=== PATIENT | male | born 1980 | race Hispanic/Latino ===

== ENCOUNTER 2022-01-11 09:05 | Inpatient (IN) | payer SELFPAY ==
--- OUTSIDE RECORDS SUMMARY | 2022-01-11 09:09 | XMS REPORT | Continuity of Care Document ---
:1980 Author Organization [facility] t Address [address] [place] [address] Care Team Providers Name Role Phone NICOLE GLEASON Primary Care Physician KENZIE RICKS Attending Clinician Unavailable Payers Payer Name Policy Type Policy Number Effective Date Expiration Date S ource Problems This patient has no known problems. Allergies, Adverse Reactions, Alerts Allergy Allergy Status Severity Reaction(s) Onset Inactive Treating Comm ents Source Name Type Date Date Clinician No Known DA Active U [facility]11 [facility] 00:00: [address] No Known DA Active U [facility] 11-20 [facility] 00:00: [address] Medications This patient has no known medications. Procedures Procedure Date / Time Performed Performing Clinician Scott e CT of abdomen and 2017-08-19 00:00:00 KENZIE RICKS CHIk es [facility] contrast Encounters Start End Encounter Admission Attending Care Care Encounter Source Date/Time Date/Time Type Type Clinicians Facility Department ID 2017-08-19 2017-08-[address] [facility] [id number] KENYA Rivera 20:50:00 23:14:00 Emergency KENZIE [address] [place] [address] s Room Patient [facility] Results Test Description Test Time Test Comments Results Result [facility] e Comments - XR SPINE 1 V 2018-11-14 Patient Name: SPEC LEVEL 16:19:00 RUPA HENRY Unit No: [id number] EXAMS: CPT CODE: [id number] XR SPINE 1 V SPEC LEVEL [id number] Exam:Fluoroscopy for spine surgery Location: B2 Clinical Indication:38-year-ol d with radiculopathy Findings: Total fluoroscopy time was 1.9 seconds. Cumulative dose was 2.04 hours prior dose. A single lateral fluoroscopic view of the lower lumbar spine was submitted, showing surgical instruments projecting over the lumbosacral junction posterior elements. Please see operative report for further detail. at 1619 Reported and signed by: Suleman Easton M.D. CC: Dann Munguia MD Technologist: Miko Estrada, RT(R) Transcrpt Date/Tm/Trnsp: 11/14/2018 (161) t.SDR.[id number] Orig Print D/T: S: 11/14/2018 (4119) [facility] NAME: RUPA HENRY [id number] PHYS: [place] [address] : 1980 AGE: 38 SEX: M LOC: Z.531 A PHONE #: [phone] EXAM DATE: 11/14/2018 STATUS: ADM IN FAX #: [phone] RADIOLOGY NO: PAGE 1 Signed Report PLATELET FUNCTION 2018-11-11 11:27:00 Test Item Value Reference Range Interpretation Comme nts PFA COLLAGEN/EPI (test 169 SECONDS 83-183 N NOTE: When the COL/EPI study code = PFA) is abnormal, it is usually due to anaspiri n or an aspirin like de fect. Sometimes a her editarydefect, for example, st orage pool disease, can al so causethe abnormality. Ho wever, when the COL/ADP nelson dy is abnormal, a mor e seriousproblem usually exists, such as von Willebrands dis ease,etc. and further evaluat ion is usually indicated. PFA COLLAGEN/ADP (test TEST NOT PERFORMED 61-109 TEST NOT INDICATED code = COLADP) SECONDS CBC W/AUTO [id number] 11:25:00 Test Item Value Reference Range Interpretation Comments WHITE BLOOD CELL (test code = 9.1 K/MM3 3.8-9.8 N WBC) RED BLOOD CELL (test code = 5.63 M/MM3 3.95-5.67 N RBC) HEMOGLOBIN (test code = HGB) 16.1 G/DL 12.4-16.7 N HEMATOCRIT (test code = HCT) 47.7 % 35.9-49.5 N MEAN CELL VOLUME (test code = 85 fL 81.7-96.1 N MCV) MEAN CELL HGB (test code = MCH) 28.6 pg 27.6-33.2 N MEAN CELL HGB CONCETRATION 33.8 % 32.9-35.5 N (test code = MCHC) RED CELL DISTRIBUTION WIDTH 13.5 % 12.1-15.2 N (test code = RDW) PLATELET COUNT (test code = 210 K/MM3 129-368 N PLT) MEAN PLATELET VOLUME (test code 10.9 fl 7.4-10.4 H = MPV) NEUTROPHIL % (test code = NT%) 55.7 % 43-75 N IMMATURE GRANULOCYTE % (test 0.4 % 0.0-2.0 N code = IG%) LYMPHOCYTE % (test code = LY%) 29.8 % 14-44 N MONOCYTE % (test code = MO%) 8.1 % 4-13 N EOSINOPHIL % (test code = EO%) 5.7 % 0-6 N BASOPHIL % (test code = BA%) 0.3 % 0-2 N NUCLEATED RBC % (test code = 0.0 % 0-1.0 N NRBC%) NEUTROPHIL # (test code = NT#) 5.03 K/mm3 2.0-7.6 N IMMATURE GRANULOCYTE # (test 0.04 x10 3/uL 0-0.03 H code = IG#) LYMPHOCYTE # (test code = LY#) 2.70 K/mm3 1.0-3.8 N MONOCYTE # (test code = MO#) 0.73 K/mm3 0.1-0.8 N EOSINOPHIL # (test code = EO#) 0.52 K/mm3 0.0-0.2 H BASOPHIL # (test code = BA#) 0.03 K/mm3 0.0-0.2 N NUCLEATED RBC # (test code = 0.00 K/mm3 0.0-0.1 N NRBC#) COMPREHENSIVE METABOLIC [id number] 11:20:00 Test Item Value Reference Range Interpretation Comments SODIUM (test code = 144 MMOL/L 137-145 N NA) POTASSIUM (test code = 4.4 MMOL/L 3.5-5.1 N K) CHLORIDE (test code = 108 MMOL/L 98-107 H CL) CARBON DIOXIDE (test 26 MMOL/L 22-30 N code = CO2) GLUCOSE (test code = 118 MG/DL 74-106 H GLU) BLOOD UREA NITROGEN 13 MG/DL 9-20 N (test code = BUN) GLOMERULAR FILTRATION > 60 Report ing units: RATE (test code = GFR) ml/mi n/1.73 m2 (Modified MDRD Formula)Referen ce Range: > or = 6 0 ml/min/1.73 m2 CREATININE (test code 0.70 MG/DL 0.66-1.25 N = CREAT) TOTAL PROTEIN (test 7.6 G/DL 6.2-7.6 N code = PROT) ALBUMIN (test code = 4.0 G/DL 3.5-5.0 N ALB) CALCIUM (test code = 11.1 MG/DL 8.4-10.2 H CA) BILIRUBIN TOTAL (test 0.3 MG/DL 0.2-1.3 N code = BILT) SGOT/AST (test code = 33 UNITS/L 17-59 N AST) SGPT/ALT (test code = 67 UNITS/L 21-72 N ALT) ALKALINE PHOSPHATASE 120 UNITS/L 38-126 N (test code = ALKP) LIPID PROFILE (CORONARY RISK)2018-11-11 11:20:00 Test Item Value Reference Range Interpretation Comments TRIGLYCERIDES (test 180 MG/DL TRIGLYCE RIDES code = TRIG) REFERENCE RANGE:Normal: < 150 mg/dLBorderline High: 150-199 mg/dLHi gh: 200-499 mg/dLVe ry High: >=500 mg/ dL CHOLESTEROL (test code 209 MG/DL <200 = CHOL) HDL CHOLESTEROL (test 29 MG/DL 40-59 L code = HDL) LIPOPROTEIN LDL (test 155 MG/DL 0-99 H OPTIM AL.........<100 code = LDL) mg/dLNEAR OPTIMAL/ABOVE OPTIMAL........ .100-12 9 mg/dL BORDERL INE HIGH.........13 0-159 mg/dL HIGH.........16 0-189 mg/dL VERY HIGH.........>/ = 190 mg/dL PROTHROMBIN [id number] 11:18:00 Test Item Value Reference Range Interpretation Comments PROTHROMBIN TIME 10.4 SECONDS 9.6-11.6 N PATIENT (test code = PTP) INTERNATIONAL NORMAL 1.0 0.8-1.1 N The INR is to be RATIO (test code = used only for INR) monitoring oral anticoagulantth erap y. INDICATION I NR VALUE ---- ---- ---- -------1. Prophylaxis, de ep venous thrombos is, including high risk surgery. 2.0 - 3.0 2. Prophylaxis, deep venous thrombosis, hip surgery, treatm ent for deep venous thrombosis or pulmonary prevention of systemic emboli sm in patients wit h valvular heart disease, atrial fibrillation, tissue heart va lve, or acute myocar dial infarction. 2.0 - 3.0 3. B2B Outside Sales Representative al prosthesis hear t valves, recurre nt systemic emboli sm. 3.0 - 4.5 PTT [id number] 11:18:00 Test Item Value Reference Range Interpretation Comments PTT ACTIVATED (test code = APTT) 27.6 SECONDS 22.0-33.0 N COMPREHENSIVE METABOLIC [id number] 11:10:00 Test Item Value Reference Range Interpretation Comments SODIUM (test code = 144 MMOL/L 137-145 N NA) POTASSIUM (test code = 4.4 MMOL/L 3.5-5.1 N K) CHLORIDE (test code = 108 MMOL/L 98-107 H CL) CARBON DIOXIDE (test 26 MMOL/L 22-30 N code = CO2) GLUCOSE (test code = 118 MG/DL 74-106 H GLU) BLOOD UREA NITROGEN 13 MG/DL 9-20 N (test code = BUN) GLOMERULAR FILTRATION > 60 Report ing units: RATE (test code = GFR) ml/mi n/1.73 m2 (Modified MDRD Formula)Referen ce Range: > or = 6 0 ml/min/1.73 m2 CREATININE (test code 0.70 MG/DL 0.66-1.25 N = CREAT) TOTAL PROTEIN (test 7.6 G/DL 6.2-7.6 N code = PROT) ALBUMIN (test code = 4.0 G/DL 3.5-5.0 N ALB) CALCIUM (test code = 11.1 MG/DL 8.4-10.2 H CA) BILIRUBIN TOTAL (test 0.3 MG/DL 0.2-1.3 N code = BILT) SGOT/AST (test code = 33 UNITS/L 17-59 N AST) SGPT/ALT (test code = 67 UNITS/L 21-72 N ALT) ALKALINE PHOSPHATASE 120 UNITS/L 38-126 N (test code = ALKP) LIPID PROFILE (CORONARY RISK)2018-11-11 11:10:00 Test Item Value Reference Range Interpretation Comments TRIGLYCERIDES (test 180 MG/DL TRIGLYCE RIDES code = TRIG) REFERENCE RANGE:Normal: < 150 mg/dLBorderline High: 150-199 mg/dLHi gh: 200-499 mg/dLVe ry High: >=500 mg/ dL CHOLESTEROL (test code 209 MG/DL <200 = CHOL) HDL CHOLESTEROL (test 29 MG/DL 40-59 L code = HDL) LIPOPROTEIN LDL (test MG/DL 0-99 code = LDL) - XR L-SPINE 2/3 [id number] 09:38:00 Patient Name: RUPA HENRY JR Unit No: [id number] EXAMS: CPT CODE: [id number] XR L-SPINE 2/3 VIEWS [id number] Exam:Fluoroscopy for spine procedure Location: B2 Clinical Indication:38-year-old with disc displacement Comparison:None Findings:Total fluoroscopy time was 8.7 seconds. Cumulative dose was 5.05 mGy. 2 spot postoperative views of the lumbosacral junction were submitted, showing surgical instruments at that level. Please see operative report for further detail. at 0938 Reported and signed by: Suleman Easton M.D. CC: Dann Munguia MD Technologist: Miko Estrada RT(R) Transcrpt Date/Tm/Trnsp: 08/15/2018 (937) Hima.RB24 O rig Print D/T: S: 08/15/2018 (41) [facility] NAME: RUPA HENRY [id number] [address] PHYS: [place] [address] : 1980 AGE: 38 SEX: M LOC: JORGE A PHONE #:[phone] EXAM DATE: 08/15/2018 STATUS: REG SDC FAX #: [phone] RADIOLOGY NO: PAGE 1 Signed R eportPLATELET [id number] 14:35:00 Test Item Value Reference Range Interpretation Comments PFA > 300 SECONDS 83-183 H NOTE:When the COL/EPI COLLAGEN/EPI study is abnorm al, it is (test code = usually due to anaspirin PFA) or an aspirin l esperanza defect. Sometim es a hereditarydefec t, for example, storag e pool disease, can al so causethe abnorm ality. However, when t he COL/ADP study is abnorm al, a more seriousproblem usually exists, such as von Willebrands dis ease,etc. and further lobo luation is usually indicat ed. PFA 102 SECONDS 61-109 N COLLAGEN/ADP (test code = COLADP) COMPREHENSIVE METABOLIC [id number] 13:35:00 Test Item Value Reference Range Interpretation Comments SODIUM (test code = 142 MMOL/L 137-145 N NA) POTASSIUM (test code = 4.5 MMOL/L 3.5-5.1 N K) CHLORIDE (test code = 106 MMOL/L 98-107 N CL) CARBON DIOXIDE (test 28 MMOL/L 22-30 N code = CO2) GLUCOSE (test code = 92 MG/DL 74-106 N GLU) BLOOD UREA NITROGEN 17 MG/DL 9-20 N (test code = BUN) GLOMERULAR FILTRATION > 60 Report ing units: RATE (test code = GFR) ml/mi n/1.73 m2 (Modified MDRD Formula)Referen ce Range: > or = 6 0 ml/min/1.73 m2 CREATININE (test code 0.80 MG/DL 0.66-1.25 N = CREAT) TOTAL PROTEIN (test 8.0 G/DL 6.2-7.6 H code = PROT) ALBUMIN (test code = 4.6 G/DL 3.5-5.0 N ALB) CALCIUM (test code = 11.5 MG/DL 8.4-10.2 H CA) BILIRUBIN TOTAL (test 0.1 MG/DL 0.2-1.3 L code = BILT) SGOT/AST (test code = 33 UNITS/L 17-59 N AST) SGPT/ALT (test code = 68 UNITS/L 21-72 N ALT) ALKALINE PHOSPHATASE 114 UNITS/L 38-126 N (test code = ALKP) LIPID PROFILE (CORONARY RISK)2018-08-12 13:35:00 Test Item Value Reference Range Interpretation Comments TRIGLYCERIDES (test 176 MG/DL TRIGLYCE RIDES code = TRIG) REFERENCE RANGE:Normal: < 150 mg/dLBorderline High: 150-199 mg/dLHi gh: 200-499 mg/dLVe ry High: >=500 mg/ dL CHOLESTEROL (test code 193 MG/DL <200 = CHOL) HDL CHOLESTEROL (test 36 MG/DL 40-59 L code = HDL) LIPOPROTEIN LDL (test 154 MG/DL 0-99 H OPTIM AL.........<100 code = LDL) mg/dLNEAR OPTIMAL/ABOVE OPTIMAL........ .100-12 9 mg/dL BORDERL INE HIGH.........13 0-159 mg/dL HIGH.........16 0-189 mg/dL VERY HIGH.........>/ = 190 mg/dL COMPREHENSIVE METABOLIC [id number] 13:21:00 Test Item Value Reference Range Interpretation Comments SODIUM (test code = 142 MMOL/L 137-145 N NA) POTASSIUM (test code = 4.5 MMOL/L 3.5-5.1 N K) CHLORIDE (test code = 106 MMOL/L 98-107 N CL) CARBON DIOXIDE (test 28 MMOL/L 22-30 N code = CO2) GLUCOSE (test code = 92 MG/DL 74-106 N GLU) BLOOD UREA NITROGEN 17 MG/DL 9-20 N (test code = BUN) GLOMERULAR FILTRATION > 60 Report ing units: RATE (test code = GFR) ml/mi n/1.73 m2 (Modified MDRD Formula)Referen ce Range: > or = 6 0 ml/min/1.73 m2 CREATININE (test code 0.80 MG/DL 0.66-1.25 N = CREAT) TOTAL PROTEIN (test 8.0 G/DL 6.2-7.6 H code = PROT) ALBUMIN (test code = 4.6 G/DL 3.5-5.0 N ALB) CALCIUM (test code = 11.5 MG/DL 8.4-10.2 H CA) BILIRUBIN TOTAL (test 0.1 MG/DL 0.2-1.3 L code = BILT) SGOT/AST (test code = 33 UNITS/L 17-59 N AST) SGPT/ALT (test code = 68 UNITS/L 21-72 N ALT) ALKALINE PHOSPHATASE 114 UNITS/L 38-126 N (test code = ALKP) LIPID PROFILE (CORONARY RISK)2018-08-12 13:21:00 Test Item Value Reference Range Interpretation Comments TRIGLYCERIDES (test 176 MG/DL TRIGLYCE RIDES code = TRIG) REFERENCE RANGE:Normal: < 150 mg/dLBorderline High: 150-199 mg/dLHi gh: 200-499 mg/dLVe ry High: >=500 mg/ dL CHOLESTEROL (test code 193 MG/DL <200 = CHOL) HDL CHOLESTEROL (test 36 MG/DL 40-59 L code = HDL) LIPOPROTEIN LDL (test MG/DL 0-99 code = LDL) PROTHROMBIN [id number] 13:19:00 Test Item Value Reference Range Interpretation Comments PROTHROMBIN TIME 10.3 SECONDS 9.6-11.6 N PATIENT (test code = PTP) INTERNATIONAL NORMAL 1.0 0.8-1.1 N The INR is to be RATIO (test code = used only for INR) monitoring oral anticoagulantth erap y. INDICATION I NR VALUE ---- ---- ---- -------1. Prophylaxis, de ep venous thrombos is, including high risk surgery. 2.0 - 3.0 2. Prophylaxis, deep venous thrombosis, hip surgery, treatm ent for deep venous thrombosis or pulmonary prevention of systemic emboli sm in patients wit h valvular heart disease, atrial fibrillation, tissue heart va lve, or acute myocar dial infarction. 2.0 - 3.0 3. B2B Outside Sales Representative al prosthesis hear t valves, recurre nt systemic emboli sm. 3.0 - 4.5 PTT [id number] 13:19:00 Test Item Value Reference Range Interpretation Comments PTT ACTIVATED (test code = APTT) 26.8 SECONDS 22.0-33.0 N CBC W/AUTO [id number] 13:06:00 Test Item Value Reference Range Interpretation Comments WHITE BLOOD CELL (test code = 9.6 K/MM3 3.8-9.8 N WBC) RED BLOOD CELL (test code = 5.71 M/MM3 3.95-5.67 H RBC) HEMOGLOBIN (test code = HGB) 16.2 G/DL 12.4-16.7 N HEMATOCRIT (test code = HCT) 48.2 % 35.9-49.5 N MEAN CELL VOLUME (test code = 84 fL 81.7-96.1 N MCV) MEAN CELL HGB (test code = MCH) 28.4 pg 27.6-33.2 N MEAN CELL HGB CONCETRATION 33.6 % 32.9-35.5 N (test code = MCHC) RED CELL DISTRIBUTION WIDTH 13.2 % 12.1-15.2 N (test code = RDW) PLATELET COUNT (test code = 219 K/MM3 129-368 N PLT) MEAN PLATELET VOLUME (test code 11.0 fl 7.4-10.4 H = MPV) NEUTROPHIL % (test code = NT%) 53.3 % 43-75 N IMMATURE GRANULOCYTE % (test 0.4 % 0.0-2.0 N code = IG%) LYMPHOCYTE % (test code = LY%) 31.3 % 14-44 N MONOCYTE % (test code = MO%) 8.1 % 4-13 N EOSINOPHIL % (test code = EO%) 6.6 % 0-6 H BASOPHIL % (test code = BA%) 0.3 % 0-2 N NUCLEATED RBC % (test code = 0.0 % 0-1.0 N NRBC%) NEUTROPHIL # (test code = NT#) 5.13 K/mm3 2.0-7.6 N IMMATURE GRANULOCYTE # (test 0.04 x10 3/uL 0-0.03 H code = IG#) LYMPHOCYTE # (test code = LY#) 3.01 K/mm3 1.0-3.8 N MONOCYTE # (test code = MO#) 0.78 K/mm3 0.1-0.8 N EOSINOPHIL # (test code = EO#) 0.64 K/mm3 0.0-0.2 H BASOPHIL # (test code = BA#) 0.03 K/mm3 0.0-0.2 N NUCLEATED RBC # (test code = 0.00 K/mm3 0.0-0.1 N NRBC#) Urine [id number] 21:42:00 Test Item Value Reference Range Interpretation Comments Urine WBC (test code = 5821-4) 0-5 0-5 [facility] [id number] 21:42:00 Test Item Value Reference Range Interpretation Comments Urine RBC (test code = 56171-0) 50- 0-5 H [facility] Hospital[facility] [id number] 21:42:00 Test Item Value Reference Range Interpretation Comments Urine Bacteria (test code = 74494-9) MODERATE NONE H [facility] HospitalU[facility] Epithelial [id number] 21:42:00 Test Item Value Reference Range Interpretation Comments Urine Epithelial Cells (test code = NONE NONE 79788-7) [facility] HospitalCreatine Kinase [id number] 21:42:00 Test Item Value Reference Range Interpretation Comments Creatine Kinase MB (test code = 0.70 0-5.0 83164-6) [facility] HospitalTroponin [id number] 21:42:00 Test Item Value Reference Range Interpretation Comments Troponin I (test code = JXX1251) -0.001 0-0.300 [facility] [id number] 21:36:00 Test Item Value Reference Range Interpretation Comments Sodium Level (test code = 2951-2) 141 136-145 [facility] HospitalPotassium [id number] 21:36:00 Test Item Value Reference Range Interpretation Comments Potassium Level (test code = 2823-3) 4.2 3.5-5.1 [facility] HospitalChloride [id number] 21:36:00 Test Item Value Reference Range Interpretation Comments Chloride Level (test code = 2075-0) 105 98-107 [facility] HospitalCarbon Dioxide [id number] 21:36:00 Test Item Value Reference Range Interpretation Comments Carbon Dioxide Level (test code = 27 22-2027-) [facility] HospitalAnion [id number] 21:36:00 Test Item Value Reference Range Interpretation Comments Anion Gap (test code = 25415-7) 13.2 8-16 [facility] HospitalBlood Urea [id number] 21:36:00 Test Item Value Reference Range Interpretation Comments Blood Urea Nitrogen (test code = 01-03 3094-0) [facility] HospitalCreatinine2018-03-11 21:36:00 Test Item Value Reference Range Interpretation Comments Creatinine (test code = 2160-0) 1.19 0.72-1.25 [facility] HospitalBUN/Creatinine [id number] 21:36:00 Test Item Value Reference Range Interpretation Comments BUN/Creatinine Ratio (test code = 12-03 3097-3) [facility] HospitalEstimat Glomerular Filtration [id number] 21:36:00 Test Item Value Reference Range Interpretation Comments Estimat Glomerular Filtration Rate 60- >60 (test code = 91084-6) Ranges were taken from the National Kidney Disease Education Program and the National Kidney Foundation literature.Reference ranges:60 or greater: Rwzxry29- 59 (for 3 consecutive months): Chronic kidneydisease 15 or less: Kidney failure [facility] HospitalGlucose [id number] 21:36:00 Test Item Value Reference Range Interpretation Comments Glucose Level (test code = AOU5115) 103 74-118 [facility] HospitalCalcium [id number] 21:36:00 Test Item Value Reference Range Interpretation Comments Calcium Level (test code = 62036-1) 10.6 8.4-10.2 H [facility] HospitalTotal [id number] 21:36:00 Test Item Value Reference Range Interpretation Comments Total Bilirubin (test code = 1975-2) 0.4 0.2-1.2 [facility] HospitalAspartate Amino Transf (AST/SGOT)2017-08-19 21:36:00 Test Item Value Reference Range Interpretation Comments Aspartate Amino Transf (AST/SGOT) (test 34 5-34 code = Aspartate Amino Transf (AST/SGOT)) [facility] HospitalAlanine Aminotransferase (ALT/SGPT)2017-08-19 21:36:00 Test Item Value Reference Range Interpretation Comments Alanine Aminotransferase (ALT/SGPT) 66 0-55 H (test code = 1742-6) [facility] HospitalTotal [id number] 21:36:00 Test Item Value Reference Range Interpretation Comments Total Protein (test code = 2885-2) 7.7 6.5-8.1 [facility] HospitalAlbumin2018-03-11 21:36:00 Test Item Value Reference Range Interpretation Comments Albumin (test code = 1751-7) 4.1 3.5-5.0 [facility] HospitalGlobulin2018-03-11 21:36:00 Test Item Value Reference Range Interpretation Comments Globulin (test code = 74842-9) 3.6 2.3-3.5 H [facility] HospitalAlbumin/Globulin [id number] 21:36:00 Test Item Value Reference Range Interpretation Comments Albumin/Globulin Ratio (test code = 1.1 0.8-2.0 1759-0) [facility] HospitalAlkaline [id number] 21:36:00 Test Item Value Reference Range Interpretation Comments Alkaline Phosphatase (test code = 105 40-150 6768-6) [facility] HospitalCreatine [id number] 21:36:00 Test Item Value Reference Range Interpretation Comments Creatine Kinase (test code = 2157-6) 103 30-200 [facility] HospitalProthrombin [id number] 21:25:00 Test Item Value Reference Range Interpretation Comments Prothrombin Time (test code = 5902-2) 12.6 11.9-14.5 [facility] HospitalProthromb Time International [id number] 21:25:00 Test Item Value Reference Range Interpretation Comments Prothromb Time International Ratio 1.02 (test code = 6301-6) Oral Anticoagulant Therapy INR Values:1. Low Intensity Therapy 1.5 - 2.02. Moderate Intensity Therapy 2.0 - 3.03. High Intensity Therapy(1) 2.5 - 3.54. High Intensity Therapy(2) 3.0 - 4.05. Panic ValueINR > 5.0[facility] HospitalActivated Partial Thromboplast [id number] 21:25:00 Test Item Value Reference Range Interpretation Comments Activated Partial Thromboplast Time 24.4 23.8-35.5 (test code = 15824-5) [facility] HospitalMean Corpuscular Hemoglobin [id number] 21:22:00 Test Item Value Reference Range Interpretation Comments Mean Corpuscular Hemoglobin Concent 34.8 31-35 (test code = 786-4) [facility] HospitalRed Cell Distribution [id number] 21:22:00 Test Item Value Reference Range Interpretation Comments Red Cell Distribution Width (test code 12.9 11.7-14.4 = 78779-1) [facility] HospitalPlatelet [id number] 21:22:00 Test Item Value Reference Range Interpretation Comments Platelet Count (test code = 777-3) 208 140-360 [facility] HospitalNeutrophils (%) (Auto)2017-08-19 21:22:00 Test Item Value Reference Range Interpretation Comments Neutrophils (%) (Auto) (test code = 52.3 38.7-80.0 32830-5) [facility] HospitalLymphocytes (%) (Auto)2017-08-19 21:22:00 Test Item Value Reference Range Interpretation Comments Lymphocytes (%) (Auto) (test code = 32.4 18.0-39.1 736-9) [facility] HospitalMonocytes (%) (Auto)2017-08-19 21:22:00 Test Item Value Reference Range Interpretation Comments Monocytes (%) (Auto) (test code = 10.7 4.4-11.3 5905-5) [facility] HospitalEosinophils (%) (Auto)2017-08-19 21:22:00 Test Item Value Reference Range Interpretation Comments Eosinophils (%) (Auto) (test code = 4.0 0.0-6.0 713-8) [facility] HospitalBasophils (%) (Auto)2017-08-19 21:22:00 Test Item Value Reference Range Interpretation Comments Basophils (%) (Auto) (test code = 0.3 0.0-1.0 706-2) [facility] HospitalIM GRANULOCYTES %2017-08-19 21:22:00 Test Item Value Reference Range Interpretation Comments IM GRANULOCYTES % (test code = IM 0.3 0.0-1.0 GRANULOCYTES %) [facility] HospitalNeutrophils # (Auto)2017-08-19 21:22:00 Test Item Value Reference Range Interpretation Comments Neutrophils # (Auto) (test code = 5.2 2.1-6.9 751-8) [facility] HospitalLymphocytes # (Auto)2017-08-19 21:22:00 Test Item Value Reference Range Interpretation Comments Lymphocytes # (Auto) (test code = 3.2 1.0-3.2 46371-2) [facility] HospitalMonocytes # (Auto)2017-08-19 21:22:00 Test Item Value Reference Range Interpretation Comments Monocytes # (Auto) (test code = 742-7) 1.1 0.2-0.8 H [facility] HospitalEosinophils # (Auto)2017-08-19 21:22:00 Test Item Value Reference Range Interpretation Comments Eosinophils # (Auto) (test code = 0.4 0.0-0.4 711-2) [facility] HospitalBasophils # (Auto)2017-08-19 21:22:00 Test Item Value Reference Range Interpretation Comments Basophils # (Auto) (test code = 704-7) 0.0 0.0-0.1 [facility] HospitalAbsolute Immature Granulocyte ([id number] 21:22:00 Test Item Value Reference Range Interpretation Comments Absolute Immature Granulocyte (auto 0.03 0-0.1 (test code = Absolute Immature Granulocyte (auto) [facility] HospitalWhite Blood [id number] 21:22:00 Test Item Value Reference Range Interpretation Comments White Blood Count (test code = 6690-2) 9.88 4.8-10.8 [facility] HospitalRed Blood [id number] 21:22:00 Test Item Value Reference Range Interpretation Comments Red Blood Count (test code = 789-8) 5.86 4.3-5.7 [facility] 21:22:00 Test Item Value Reference Range Interpretation Comments Hemoglobin (test code = 29903-1) 16.9 14.0-18.0 [facility]ematocrit2018-03-11 21:22:00 Test Item Value Reference Range Interpretation Comments Hematocrit (test code = 4544-3) 48.6 38.2-49.6 [facility] Corpuscular [id number] 21:22:00 Test Item Value Reference Range Interpretation Comments Mean Corpuscular Volume (test code = 82.9 81-99 787-2) [facility] Corpuscular [id number] 21:22:00 Test Item Value Reference Range Interpretation Comments Mean Corpuscular Hemoglobin (test code 28.8 28-32 = 785-6) [facility] Hospital[facility]rine [id number] 21:21:00 Test Item Value Reference Range Interpretation Comments Urine Color (test code = 5778-6) RED YELLOW H [facility] Hospital[facility] [id number] 21:21:00 Test Item Value Reference Range Interpretation Comments Urine Clarity (test code = 57110-9) CLOUDY CLEAR [facility] HospitalU[facility] Specific [id number] 21:21:00 Test Item Value Reference Range Interpretation Comments Urine Specific [place] (test code = 1.015 1.010-1.025 5811-5) [facility] Hospital[facility] [id number] 21:21:00 Test Item Value Reference Range Interpretation Comments Urine pH (test code = 37213-9) 7 5-7 [facility] Leukocyte [id number] 21:21:00 Test Item Value Reference Range Interpretation Comments Urine Leukocyte Esterase (test code NEGATIVE NEGATIVE = 5799-2) [facility] [id number] 21:21:00 Test Item Value Reference Range Interpretation Comments Urine Nitrite (test code = 22792-6) NEGATIVE NEGATIVE [facility] [id number] 21:21:00 Test Item Value Reference Range Interpretation Comments Urine Protein (test code = 5804-0) 1+ NEGATIVE H [facility] Hospital[facility] Glucose (UA)2017-08-19 21:21:00 Test Item Value Reference Range Interpretation Comments Urine Glucose (UA) (test code = NEGATIVE NEGATIVE 2349-9) [facility] [id number] 21:21:00 Test Item Value Reference Range Interpretation Comments Urine Ketones (test code = 44895-4) NEGATIVE NEGATIVE [facility] [id number] 21:21:00 Test Item Value Reference Range Interpretation Comments Urine Urobilinogen (test code = 0.2 0.2-1 54873-6) [facility] [id number] 21:21:00 Test Item Value Reference Range Interpretation Comments Urine Bilirubin (test code = 1978-6) NEGATIVE NEGATIVE [facility] [id number] 21:21:00 Test Item Value Reference Range Interpretation Comments Urine Blood (test code = 08357-5) 4+ NEGATIVE [facility] HospitalCT [facility]PELVIS WO [place] [address] Patient Name: RUPA HENRY JR MR #: [id number] : 1980 Age/Sex: 37/M Req #: [id number] Adm Physician: Ordered by: KENZIE RICKS MD Report #: [id number] Location: ER Room/Bed: Procedure: [id number] CT/CT ABDOMEN/PELVIS WO Exam Date: 08/19/17 Exam Time: 2133 REPORT STATUS: Signed EXAM:CT Abdomen and Pelvis WITHOUT contrast INDICATION: Hematuria, stone protocol COMPARISON: None. TECHNIQUE: Abdomen and pelvis were scanned utilizing a multidetector helical scanner from the lung base tothe pubic symphysis without administration of IV contrast. Absence of intravenous contrast decreasessensitivity for detection of focal lesions and vascular pathology. Coronal and sagittal reformationswere obtained. Stone protocol is performed. IV CONTRAST: None. ORAL CONTRAST: Water RADIATION DOSE: Total DLP: 844.45 mGy*cm Estimated effective dose: (DLP x 0.015 x size factor) mSv COMPLICATIONS: None FINDINGS: LINES and TUBES: None. LOWER THORAX: Unremarkable HEPATOBILIARY: No focal hepatic lesions. No biliary ductal dilation. GALLBLADDER: No radio-opaque stones or sludge. No wall thickening. SPLEEN: No splenomegaly. PANCREAS: No focal masses or ductal dilatation. ADRENALS: No adrenal nodules KIDNEYS/URETERS: No hydronephrosis. No cystic or solid mass lesions. Bilateral punctate nonobstructing stones. * The largest right kidney stone measuring 4.6 mm in diameter in the inferior pole. * The largest in the left kidney measuring 6.1 mm stone in the inferior pole. GI TRACT: No abnormal distention,wall thickening, or evidence of bowel obstruction. There are diverticula within the colon without evidence of diverticulitis. Appendix is normal. PELVIC ORGANS/BLADDER: Unremarkable. LYMPH NODES: No lym phadenopathy. VESSELS: Unremarkable. PERITONEUM / RETROPERITONEUM: No free air or fluid. BONES: Unremarkable. SOFT TISSUES: Unremarkable. IMPRESSION: 1. Bilateral nonobstructing nephrolithiasis without evidence of hydronephrosis. Signed by: Dr. Khai Coburn M.D. on 08/19/2017 10:09 PM Dictated By: KHAI BOWMAN MD 08 Transcribed By: OKSANA on 08/19/172208 COPY TO: KENZIE RICKS MD
--- NOTE | 2022-01-11 09:40 | RAD REPORT ---
EXAM DESCRIPTION: CT - Ct Stroke Brain Wo Cont - 01/11/2022 9:32 am CLINICAL HISTORY: Left arm numbness COMPARISON: none TECHNIQUE: Computed axial tomography of the head was obtained. All CT scans are performed using dose optimization technique as appropriate and may include automated exposure control or mA/KV adjustment according to patient size. FINDINGS: An intracranial bleed is not seen . The ventricles are normal in caliber. No extra-axial fluid collection is noted. No significant hypodensity within the brain is seen Fluid within the sinuses/ mastoids is not seen. IMPRESSION: No acute intracranial abnormality is seen. If patient's symptoms persist MRI of the bra in would be recommended. Sam of the emergency room was notified at 6 9:36 a.m. January 11, 2022
--- NOTE | 2022-01-11 09:41 | RAD REPORT ---
EXAM DESCRIPTION: [place] Single View01/11/2022 9:30 am CLINICAL HISTORY: Chest pain COMPARISON: none FINDINGS: The lungs appear clear of acute infiltrate. The heart is normal size IMPRESSION: No acute abnormalities displayed
[2022-01-11] MEDS ORDERED: ONDANSETRON 4 MG/2 ML VIAL ONE (09:45)
[2022-01-11] MEDS ORDERED: MORPHINE 4 MG/ML SYR ONE (09:45)
[2022-01-11 09:58] LABS: Absolute Lymphocytes (CBC) 1.8 K/uL (0.7-4.9); Hematocrit 53.3 % (39.6-49.0); Lymphocytes % 23.7 % (15.3-44.8); MCV 85.9 fL (80-100); MPV 8.4 fL (7.6-11.3); RBC Red Blood Cell Count 6.21 M/uL (4.33-5.43)
[2022-01-11 10:04] LABS: Protime INR 0.96
[2022-01-11 10:11] LABS: Potassium 4.3 mmol/L (3.5-5.1)
[2022-01-11] MEDS ORDERED: LIDOCAINE VISCOUS 2% SOLN 15 ML UDC ONE (10:44)
[2022-01-11] MEDS ORDERED: MAGNES/ALUMIN/SIMET 30ML UCUP ONE (10:44)
[2022-01-11] MEDS ORDERED: FAMOTIDINE 20 MG/2 ML VIAL IV ONE (10:44)
[2022-01-11] MEDS ORDERED: LORazepam 2 MG/ML VIAL ONE (11:09)
--- NOTE | 2022-01-11 11:39 | RAD REPORT ---
EXAM DESCRIPTION: LIDIASuedarien Angio01/11/2022 11:16 am CLINICAL HISTORY: Left facial numbness COMPARISON: None TECHNIQUE: 50 cc Isovue 370 was administered intravenously. 3D MIP reconstruction performed All CT scans are performed using dose optimization technique as appropriate and may include automated exposure control or mA/KV adjustment according to patient size. FINDINGS: Common carotid, internal carotid and external carotid arteries bilaterally do not demonstr ate a significant stenosis. There is minimal plaque present. Vertebral arteries are codominant. No dissection seen. IMPRESSION: No significant abnormality is displayed NASCET criteria used. Mild 0-49% stenosis Moderate 50-69% stenosis Severe 70-99% stenosis
--- NOTE | 2022-01-11 11:51 | RAD REPORT ---
EXAM DESCRIPTION: CTHead angio01/11/2022 11:15 am CLINICAL HISTORY: Left numbness COMPARISON: None TECHNIQUE: CT angiogram of the head was obtained. 3D MIPS reconstruction performed. All CT scans are performed using dose optimization technique as appropriate and may include automated exposure control or mA/KV adjustment according to patient size. FINDINGS: The basilar, internal carotid, anterior cerebral, middle cerebral and posterior cerebral a rteries are normal caliber. An aneurysm is not seen. A significant stenosis is not noted. IMPRESSION: Unremarkable CT angiogram head.
--- NOTE | 2022-01-11 13:09 | EDPHYS ---
Physician Documentation [facility] Name: Ronnie Bartlett Jr Age: 41 yrs Sex: Male : 1980 Arrival Date: 01/11/2022 Time: 09:06 Bed 2 Private MD: TAYE Physician Tin Sommers HPI: 01/11 09:08 This 41 yrs old Male presents to ER via EMS with complaints of Chest Pain. jmm 09:08 The patient or guardian reports chest pain that is located primarily in the substernal [facility] area. The pain radiates to the left arm. Associated signs and symptoms: Pertinent positives: paresthesias. 41-year-old male with no chronic medical conditions presents emerged department with complaints of substernal chest pain beginning this morning at around 8 AM. Patient states the pain soon began to radiate to the left arm but does describe the discomfort as numbness to both the left arm and left side of his face. Patient states having small amount of tingling to the left leg but he attributes this to lower back injury. Patient denies shortness of breath. Denies weakness to the left upper extremity, denies difficulty with his speech.. Historical: - Allergies: 09:11 No Known Allergies; jd3 - Home Meds: 09:11 None [Active]; jd3 - PMHx: 09:11 None; jd3 - PSHx: 09:11 None; jd3 - Immunization history:: Adult Immunizations up to date, Client reports receiving the 2nd dose of the Covid vaccine. - Social history:: Smoking status: Patient denies any tobacco usage or history of. ROS: 09:08 Constitutional: Negative for fever, chills, and weight loss, Respiratory: Negative for jmm shortness of breath, cough, wheezing, and pleuritic chest pain. 09:08 Cardiovascular: Positive for chest pain. 09:08 Neuro: Positive for numbness. 09:08 All other systems are negative. Exam: 09:08 Head/Face: atraumatic. Eyes: EOMI, no conjunctival erythema appreciated ENT: Moist jmm Mucus Membranes Neck: Trachea midline, Supple Chest/axilla: Normal chest wall appearance and motion. 09:08 Constitutional: The patient appears alert, awake, anxious. 09:08 Cardiovascular: Rate: normal, Rhythm: regular. 09:08 Respiratory: the patient does not display signs of respiratory distress, Respirations: normal, Breath sounds: are clear throughout. 09:08 Abdomen/GI: Inspection: abdomen appears normal, Bowel sounds: normal, Palpation: soft, mild abdominal tenderness, in the epigastric area and right upper quadrant. 09:08 Back: CVA tenderness, is absent, is noted bilaterally. 09:08 Musculoskeletal/extremity: ROM: intact in all extremities, No edema appreciated to the left or right lower leg, compartments are soft, full dorsalis pedis pulse bilaterally, neurovascular intact. Vital Signs: 09:11 BP 165 / 101; Pulse 96; Resp 14 S; Temp 98(TE); Pulse Ox 100% on R/A; Weight 108.86 kg jd3 (R); Height 5 ft. 8 in. (172.72 cm) (R); Pain 7/10; 10:08 BP 125 / 90; Pulse 87; Resp 16 S; Pulse Ox 97% on R/A; Pain 3/10; jd3 10:41 Pain 6/10; jd3 11:06 BP 132 / 71; Pulse 81; Resp 15; Pulse Ox 95% on R/A; jd3 12:31 BP 121 / 63; Pulse 86; Resp 16; Pulse Ox 95% on R/A; jd3 13:35 BP 126 / 85; Pulse 85; Resp 17; Pulse Ox 98% on R/A; jd3 16:08 Pulse 86; Resp 16; Pulse Ox 99% on R/A; jd3 19:00 BP 145 / 101; Pulse 79; Resp 16; Pulse Ox 93% ; vc1 20:00 BP 142 / 89; Pulse 79; Resp 17; Pulse Ox 95% on R/A; vc1 09:11 Body Mass Index 36.49 (108.86 kg, 172.72 cm) jd3 NIH Stroke Scale Scores: 09:08 NIHSS Score: [address] [facility] 09:15 NIHSS Score: 0 j MDM: 09:08 Patient medically screened. gregorio 13:06 Data reviewed: vital signs, nurses notes. Counseling: I had a detailed discussion with jaime the patient and/or guardian regarding: the historical points, exam findings, and any diagnostic results supporting the discharge/admit diagnosis, lab results, radiology results, the need for further work-up and treatment in the hospital. ED course: I discussed the patient with whom does not recommend administration of TN K due to NIH of 0. Does recommend CTA angio of the head and the neck as well as administration of Plavix folic acid, aspirin. I discussed the patient with Dr. Beach whom accepted the patient to his service.. 01/11 09:16 Order name: Basic Metabolic Panel; Complete Time: 10:[address] [facility] 01/11 09:16 Order name: CBC with Diff; Complete Time: 10:[address] [facility] 01/11 09:16 Order name: Protime (+inr); Complete Time: 10:[address] [facility] 01/11 09:16 Order name: Ptt, Activated; Complete Time: 10:[address] [facility] 01/11 09:37 Order name: Glucose, Ancillary Testing; Complete Time: 09:41 [facility] 01/11 10:50 Order name: Troponin High Sensitivity; Complete Time: 11:[address] [facility] 01/11 09:16 Order name: CT Stroke Brain w/o Contrast; Complete Time: 09:[address] [facility] 01/11 09:16 Order name: Stroke CXR 1 View; Complete Time: 09:[address] [facility] 01/11 11:04 Order name: Head Angio CT; Complete Time: 12:[address] [facility] 01/11 11:04 Order name: Neck Angio CT; Complete Time: 11:[address] [facility] 01/11 11:13 Order name: SARS RAPID; Complete Time: 13:[address] [facility] 01/11 11:41 Order name: Troponin High Sensitivity: repeat after 3 hours; Complete Time: 13:[address] [facility] 01/11 15:19 Order name: Stroke Protocol [facility] 01/11 18:27 Order name: MRI; Complete Time: 19:35 [facility] 01/11 09:16 Order name: EKG; Complete Time: 09:[address] [facility] 01/11 09:16 Order name: Accucheck; Complete Time: 09:[address] [facility] 01/11 09:16 Order name: Cardiac monitoring; Complete Time: 09:[address] [facility] 01/11 09:16 Order name: EKG - Nurse/Tech; Complete Time: 09:[address] [facility] 01/11 09:16 Order name: IV Saline Lock; Complete Time: 09:[address] [facility] 01/11 09:16 Order name: Labs collected and sent; Complete Time: 09:[address] [facility] 01/11 15:19 Order name: CONS Physician Consult [facility] 01/11 18:28 Order name: MRI; Complete Time: 19:35 [facility] 01/11 18:31 Order name: MRI; Complete Time: 19:35 [facility] 01/11 09:16 Order name: NPO; Complete Time: 09:[address] [facility] 01/11 09:16 Order name: O2 Per Protocol; Complete Time: 09:[address] [facility] 01/11 09:16 Order name: O2 Sat Monitoring; Complete Time: 09:[address] [facility] 01/11 09:16 Order name: Stroke Swallow Screen; Complete Time: 09:[address] [facility] 01/11 09:35 Order name: Labs - recollect needed; Complete Time: 09:47 aa5 Administered Medications: 09:45 Drug: morphine 4 mg {Note: pain of 12/18.} Route: IVP; Infused Over: 4 mins; Site: left jd3 antecubital; 10:41 Follow up: Pain 610 Adult; Response: No adverse reaction; RASS: Alert and Calm (0) jd3 09:45 Drug: Zofran (Ondansetron) 4 mg Route: IVP; Site: left antecubital; jd3 10:41 Follow up: Response: No adverse reaction jd3 10:24 CANCELLED (given by EMSS): Aspirin Chewable Tablet 324 mg PO once; 81 mg tablets x 4 jd3 10:41 Drug: Pepcid (famotidine) 20 mg Route: IVP; Site: left antecubital; jd3 11:05 Follow up: Response: No adverse reaction jd3 10:41 Drug: GI Cocktail without - (Maalox Suspension 30 ml, Lidocaine Liquid 2 % 15 jd3 ml) Route: PO; 11:05 Follow up: Response: No adverse reaction jd3 11:05 Drug: Ativan (LORazepam) 1 mg Route: IVP; Site: left antecubital; jd3 12:00 Follow up: Response: No adverse reaction jd3 13:14 Drug: foLIC Acid 1 mg Route: IVPB; Site: left antecubital; jd3 14:00 Follow up: Response: No adverse reaction; IV Status: Completed infusion jd3 Disposition Summary: 01/11/22 13:08 Hospitalization Ordered Hospitalization Status: Observation jmm Provider: [place] Location: Telemetry/MedSurg (observation) jmm Condition: Stable jmm Problem: new jmm Symptoms: are unchanged [facility] Bed/Room Type: Standard [facility] Room Assignment: 223(01/11/22 19:57) Diagnosis - Chest pain, unspecified jmm - Left Sided Paresthesias [facility] Forms: - Medication Reconciliation Form [facility] - SBAR form [facility] NIH Stroke Scale - NIH Stroke Score Date: 01/11/2022 Time: 09:08 Total Score = 0 1a. Level of Consciousness (LOC) - 0(Alert) 1b. Level of Consciousness (LOC) (Month \T\ Age) - 0(Both) 1c. LOC Commands (Open \T\ Closes Eyes/Field Return Repairer) - 0(Both) 2. Best Gaze (Lateral Gaze Paresis) - 0(Normal) 3. Visual Field Loss - 0(No visual loss) 4. Facial Palsy - 0(Normal) 5a. Left Arm: Motor (10-second hold) - 0(No drift) 5b. Right Arm: Motor (10-second hold) - 0(No drift) 6a. Left Leg: Motor (5-second hold - always test supine) - 0(No drift) 6b. Right Leg: Motor (5-second hold - always test supine) - 0(No drift) 7. Limb Ataxia (finger/nose \T\ heel/jaffe - test with eyes open) - 0(Absent) 8. Sensory Loss (pinprick arms/legs/face) - 0(Normal) 9. Best Language: Aphasia (description/naming/reading) - 0(No aphasia) 10. Dysarthria (speech clarity - read or repeat words) - 0(Normal) 11. Extinction and Inattention (visual/tactile/auditory/spatial/personal) - 0(No abnormality) Initials: [facility] NIH Stroke Scale - NIH Stroke Score Date: 01/11/2022 Time: 09:15 Total Score = 0 1a. Level of Consciousness (LOC) - 0(Alert) 1b. Level of Consciousness (LOC) (Month \T\ Age) - 0(Both) 1c. LOC Commands (Open \T\ Closes Eyes/Field Return Repairer) - 0(Both) 2. Best Gaze (Lateral Gaze Paresis) - 0(Normal) 3. Visual Field Loss - 0(No visual loss) 4. Facial Palsy - 0(Normal) 5a. Left Arm: Motor (10-second hold) - 0(No drift) 5b. Right Arm: Motor (10-second hold) - 0(No drift) 6a. Left Leg: Motor (5-second hold - always test supine) - 0(No drift) 6b. Right Leg: Motor (5-second hold - always test supine) - 0(No drift) 7. Limb Ataxia (finger/nose \T\ heel/jaffe - test with eyes open) - 0(Absent) 8. Sensory Loss (pinprick arms/legs/face) - 0(Normal) 9. Best Language: Aphasia (description/naming/reading) - 0(No aphasia) 10. Dysarthria (speech clarity - read or repeat words) - 0(Normal) 11. Extinction and Inattention (visual/tactile/auditory/spatial/personal) - 0(No abnormality) Initials: mulu Signatures: Dispatcher [employer] Tin Redding MD MD cha Mickail, Joel, PA PA jmm Calderon, Audri, RN RN aa5 Kajal Lr RN RN Timothy Ramon RN RN jd3 Corrections: (The following items were deleted from the chart) 09:11 09:11 PMHx: Unable to Obtain; mulu jd3 10:24 10:20 Aspirin Chewable Tablet 324 mg PO once; 81 mg tablets x 4 ordered. jaime hardwick 13: 09:17 NIHSS Score: 3 jaime sandoval 13: 09:25 NIHSS Score: 1 jaime sandoval 19:57 13:08 jaime palacios
--- NOTE | 2022-01-11 13:09 | ER ---
Nurse's Notes [facility] Name: Ronnie Bartlett Jr Age: 41 yrs Sex: Male : 1980 Arrival Date: 01/11/2022 Time: 09:06 Bed 2 Private MD: Diagnosis: Chest pain, unspecified;Left Sided Paresthesias Presentation: 01/11 09:10 Chief complaint: EMS states: "pt reported that he is having chest pain today that jd3 started around 0800 this morning. reporting it feels like he has a belt tightened around his chest. he reports his pain radiates to his left shoulder and left armpit. this radiation the pt reports as a tingling feeling.". Coronavirus screen: At this time, the client does not indicate any symptoms associated with coronavirus-19. Ebola Screen: No symptoms or risks identified at this time. Initial Sepsis Screen: Does the patient meet any 2 criteria? No. Patient's initial sepsis screen is negative. Does the patient have a suspected source of infection? No. Patient's initial sepsis screen is negative. Risk Assessment: Do you want to hurt yourself or someone else? Patient reports no desire to harm self or others. Onset of symptoms was January 11, 2022. 09:10 Method Of Arrival: EMS: [facility] jd3 09:10 Acuity: SIRENA 3 jd3 09:10 Care prior to arrival: Medication(s) given: ASA, 81 mg, x 4. jd3 Historical: - Allergies: 09:11 No Known Allergies; jd3 - Home Meds: 09:11 None [Active]; jd3 - PMHx: 09:11 None; jd3 - PSHx: 09:11 None; jd3 - Immunization history:: Adult Immunizations up to date, Client reports receiving the 2nd dose of the Covid vaccine. - Social history:: Smoking status: Patient denies any tobacco usage or history of. Screenin:14 Abuse screen: Denies threats or abuse. Nutritional screening: No deficits noted. jd3 Tuberculosis screening: No symptoms or risk factors identified. Fall Risk Ambulatory Aid- None/Bed Rest/Nurse Assist (0 pts). Gait- Normal/Bed Rest/Wheelchair (0 pts) Mental Status- Oriented to own ability (0 pts). Total José Fall Scale indicates No Risk (0-24 pts). 09:15 VAN Screening: Arm Drift: Patient shows no arm weakness. Patient is VAN negative. jd3 Patient has been NPO before screening. The patient is alert, able to follow commands. The patient does not exhibit slurred or garbled speech The patient is not exhibiting difficulty speaking. The patient does not exhibit difficulty understanding words. The patient is able to swallow own secretions with no drooling or need for suction. Patient tolerated one teaspoon of water. No drooling, immediate coughing, gurgling, or clearing of the throat was noted. The patient tolerated 90mL of water. No drooling, immediate coughing, gurgling, or clearing of the throat was noted. The patient passed the bedside swallow screening. Oral medications may be given as ordered. Contact Physician for further diet orders. Provider notified of bedside swallow screening results: Sam JAY. Assessment: 09:12 General: Appears in no apparent distress. comfortable, Behavior is calm, cooperative, jd3 appropriate for age. Pain: Complains of pain in chest Pain radiates to left shoulder Quality of pain is described as pressure, radiating, sharp, Pain began 4 hours ago. Neuro: Pandey Agitation-Sedation Scale (RASS): 0 - Alert and Calm Level of Consciousness is awake, alert, obeys commands, Oriented to person, place, time, situation, Print Line Inspector are equal bilaterally Moves all extremities. Full function Speech is normal, Facial symmetry appears normal, Pupils are PERRLA, Intact. Cardiovascular: Reports chest pain, Capillary refill < 3 seconds Patient's skin is warm and dry. Rhythm is sinus rhythm with unifocal PVCs. Respiratory: Reports shortness of breath related to pain Airway is patent Respiratory effort is even, unlabored, Respiratory pattern is regular, symmetrical, Denies cough. GI: No signs and/or symptoms were reported involving the gastrointestinal system. : No signs and/or symptoms were reported regarding the genitourinary system. EENT: No signs and/or symptoms were reported regarding the EENT system. Derm: Skin is intact, Skin is dry, Skin is normal, Skin temperature is warm. Musculoskeletal: Circulation, motion, and sensation intact. Range of motion: intact in all extremities. 10:08 Reassessment: Patient appears in no apparent distress at this time. Patient and/or jd3 family updated on plan of care and expected duration. Pain level reassessed. Patient is alert, oriented x 3, equal unlabored respirations, skin warm/dry/pink. Patient states feeling better. 11:06 Reassessment: Patient appears in no apparent distress at this time. No changes from jd3 previously documented assessment. Patient and/or family updated on plan of care and expected duration. Pain level reassessed. Patient is alert, oriented x 3, equal unlabored respirations, skin warm/dry/pink. 12:31 Reassessment: Patient appears in no apparent distress at this time. Patient and/or jd3 family updated on plan of care and expected duration. Pain level reassessed. Patient is alert, oriented x 3, equal unlabored respirations, skin warm/dry/pink. 13:35 Reassessment: Patient appears in no apparent distress at this time. Patient and/or jd3 family updated on plan of care and expected duration. Pain level reassessed. Patient is alert, oriented x 3, equal unlabored respirations, skin warm/dry/pink. Patient states feeling better. 16:08 Reassessment: Patient appears in no apparent distress at this time. No changes from jd3 previously documented assessment. Patient and/or family updated on plan of care and expected duration. Pain level reassessed. Patient is alert, oriented x 3, equal unlabored respirations, skin warm/dry/pink. 17:10 Reassessment: Patient appears in no apparent distress at this time. Patient and/or jd3 family updated on plan of care and expected duration. Pain level reassessed. Patient is alert, oriented x 3, equal unlabored respirations, skin warm/dry/pink. 18:15 Reassessment: Patient appears in no apparent distress at this time. Patient and/or jd3 family updated on plan of care and expected duration. Pain level reassessed. Patient is alert, oriented x 3, equal unlabored respirations, skin warm/dry/pink. awaiting admission. 19:15 Reassessment: No changes from previously documented assessment. Patient and/or family vc1 updated on plan of care and expected duration. Pain level reassessed. Patient states feeling better. 20:15 Reassessment: No changes from previously documented assessment. Patient and/or family vc1 updated on plan of care and expected duration. Pain level reassessed. Vital Signs: 09:11 BP 165 / 101; Pulse 96; Resp 14 S; Temp 98(TE); Pulse Ox 100% on R/A; Weight 108.86 kg jd3 (R); Height 5 ft. 8 in. (172.72 cm) (R); Pain 7/10; 10:08 BP 125 / 90; Pulse 87; Resp 16 S; Pulse Ox 97% on R/A; Pain 3/10; jd3 10:41 Pain 6/10; jd3 11:06 BP 132 / 71; Pulse 81; Resp 15; Pulse Ox 95% on R/A; jd3 12:31 BP 121 / 63; Pulse 86; Resp 16; Pulse Ox 95% on R/A; jd3 13:35 BP 126 / 85; Pulse 85; Resp 17; Pulse Ox 98% on R/A; jd3 16:08 Pulse 86; Resp 16; Pulse Ox 99% on R/A; jd3 19:00 BP 145 / 101; Pulse 79; Resp 16; Pulse Ox 93% ; vc1 20:00 BP 142 / 89; Pulse 79; Resp 17; Pulse Ox 95% on R/A; vc1 09:11 Body Mass Index 36.49 (108.86 kg, 172.72 cm) j NIH Stroke Scale Scores: 09:08 NIHSS Score: 0 jm 09:15 NIHSS Score: 0 [facility] ED Course: 09:06 Patient arrived in ED. bd 09:07 Sam Esquivel PA is PHCP. jmm 09:07 Tin Sommers MD is Attending Physician. [facility] 09:09 Timothy Gallegos, RN is Primary Nurse. jd3 09:11 Triage completed. jd3 09:12 Arm band placed on. EKG completed in triage. Results shown to MD. jd3 09:15 Patient has correct armband on for positive identification. Bed in low position. Call [facility] light in reach. Side rails up X2. Adult w/ patient. Client placed on continuous cardiac and pulse oximetry monitoring. NIBP monitoring applied. nurse monitoring on. Pulse ox on. NIBP on. 09:15 Patient maintains SpO2 saturation greater than 95% on room air. jd3 09:15 EKG done, by ED staff, reviewed by Sam JAY. mb7 09:32 Stroke CXR 1 View In Process Unspecified. EDMS 09:34 CT Stroke Brain w/o Contrast In Process Unspecified. EDMS 11:[address] In Process Unspecified. EDMS 11:[address] In Process Unspecified. EDMS 12:40 SARS RAPID Sent. zm 13:07 [place] MD is Hospitalizing Provider. jmm 20:34 No provider procedures requiring assistance completed. Maintain EMS IV. Dressing kl intact. Site clean \\T\\ dry. Gauge \\T\\ site: 18 gauge left ac. 20:35 Patient admitted, IV remains in place. kl Administered Medications: 09:45 Drug: morphine 4 mg {Note: pain of 12/18.} Route: IVP; Infused Over: 4 mins; Site: left jd3 antecubital; 10:41 Follow up: Pain 6/10 Adult; Response: No adverse reaction; RASS: Alert and Calm (0) jd3 09:45 Drug: Zofran (Ondansetron) 4 mg Route: IVP; Site: left antecubital; jd3 10:41 Follow up: Response: No adverse reaction jd3 10:24 CANCELLED (given by EMSS): Aspirin Chewable Tablet 324 mg PO once; 81 mg tablets x 4 jd3 10:41 Drug: Pepcid (famotidine) 20 mg Route: IVP; Site: left antecubital; jd3 11:05 Follow up: Response: No adverse reaction jd3 10:41 Drug: GI Cocktail without - (Maalox Suspension 30 ml, Lidocaine Liquid 2 % 15 jd3 ml) Route: PO; 11:05 Follow up: Response: No adverse reaction jd3 11:05 Drug: Ativan (LORazepam) 1 mg Route: IVP; Site: left antecubital; jd3 12:00 Follow up: Response: No adverse reaction jd3 13:14 Drug: foLIC Acid 1 mg Route: IVPB; Site: left antecubital; jd3 14:00 Follow up: Response: No adverse reaction; IV Status: Completed infusion jd3 Medication: 09:15 VIS not applicable for this client. jd3 Outcome: 13:08 Decision to Hospitalize by Provider. jmm 20:34 Admitted to Med/surg via wheelchair, Report called to jillian jacobson rn kl 20:35 Condition: stable kl 20:35 Instructed on the need for admit. 21:02 Patient left the ED. vc1 NIH Stroke Scale - NIH Stroke Score Date: 01/11/2022 Time: 09:08 Total Score = 0 1a. Level of Consciousness (LOC) - 0(Alert) 1b. Level of Consciousness (LOC) (Month \\T\\ Age) - 0(Both) 1c. LOC Commands (Open \\T\\ Closes Eyes/Egg Caser) - 0(Both) 2. Best Gaze (Lateral Gaze Paresis) - 0(Normal) 3. Visual Field Loss - 0(No visual loss) 4. Facial Palsy - 0(Normal) 5a. Left Arm: Motor (10-second hold) - 0(No drift) 5b. Right Arm: Motor (10-second hold) - 0(No drift) 6a. Left Leg: Motor (5-second hold - always test supine) - 0(No drift) 6b. Right Leg: Motor (5-second hold - always test supine) - 0(No drift) 7. Limb Ataxia (finger/nose \\T\\ heel/jaffe - test with eyes open) - 0(Absent) 8. Sensory Loss (pinprick arms/legs/face) - 0(Normal) 9. Best Language: Aphasia (description/naming/reading) - 0(No aphasia) 10. Dysarthria (speech clarity - read or repeat words) - 0(Normal) 11. Extinction and Inattention (visual/tactile/auditory/spatial/personal) - 0(No abnormality) Initials: [facility] NIH Stroke Scale - NIH Stroke Score Date: 01/11/2022 Time: 09:15 Total Score = 0 1a. Level of Consciousness (LOC) - 0(Alert) 1b. Level of Consciousness (LOC) (Month \\T\\ Age) - 0(Both) 1c. LOC Commands (Open \\T\\ Closes Eyes/Egg Caser) - 0(Both) 2. Best Gaze (Lateral Gaze Paresis) - 0(Normal) 3. Visual Field Loss - 0(No visual loss) 4. Facial Palsy - 0(Normal) 5a. Left Arm: Motor (10-second hold) - 0(No drift) 5b. Right Arm: Motor (10-second hold) - 0(No drift) 6a. Left Leg: Motor (5-second hold - always test supine) - 0(No drift) 6b. Right Leg: Motor (5-second hold - always test supine) - 0(No drift) 7. Limb Ataxia (finger/nose \\T\\ heel/jaffe - test with eyes open) - 0(Absent) 8. Sensory Loss (pinprick arms/legs/face) - 0(Normal) 9. Best Language: Aphasia (description/naming/reading) - 0(No aphasia) 10. Dysarthria (speech clarity - read or repeat words) - 0(Normal) 11. Extinction and Inattention (visual/tactile/auditory/spatial/personal) - 0(No abnormality) Initials: jd3 Signatures: Dispatcher [employer] EDMS Stephanie Jama Kimberly RN RN Sam Gastelum PA PA jmm Davies, Jonathon, RN RN jNorma Pulliam mb7 Hawa Pandey RN RN vc1 Sandra Yanez Corrections: (The following items were deleted from the chart) 09:11 09:11 PMHx: Unable to Obtain; jd3 jd3 09:34 09:10 Chief complaint: EMS states: "pt reported that he is having chest pain jd3 today that started around 0800 this morning. reporting it feels like he has a belt tightened around his chest. he reports his pain radiates to his left shoulder and left armpit." jd3 :34 09:12 Neuro: Pandey Agitation-Sedation Scale (RASS): 0 - Alert and Calm Level jd3 of Consciousness is awake, alert, obeys commands, Oriented to person, place, time, situation, jd3 09:48 09:45 morphine 4 mg IVP in left antecubital over 4 mins jd3 jd3
[2022-01-11 13:18] LABS: SARS-CoV-2 Antigen Rapid Res Negative (Negative)
[2022-01-11] MEDS ORDERED: FOLIC ACID 5 MG/ML VIAL ONE (13:21)
[2022-01-11] MEDS ORDERED: ONDANSETRON 4 MG/2 ML VIAL IV PRN (15:29)
[2022-01-11] MEDS: NA CHLORIDE 0.9% 1,000 ML IV SCH ×2 (16:00→22:00)
--- NOTE | 2022-01-11 16:30 | P.HP ---
Certification for Inpatient Patient admitted to: Observation With expected LOS: <2 Midnights Practitioner: I am a practitioner with admitting privileges, knowledge of patient current condition, hospital course, and medical plan of care. Services: Services provided to patient in accordance with Admission requirements found in Title 42 Section 412.3 of the Code of Federal Regulations Patient History Date of Service: 01/11/22 Reason for admission: L sided paresthesias History of Present Illness: 41yo M, no PMH Presented to ED this morning after episode of chest discomfort associated with left lower face/arm/leg numbness. NIH: 0. Patient denies any prior cardiac history, no seizure/strokes. He was working on a tablet when this began. In the ED, noted to have some decreased sensation of lower face / hand/leg on left side. ER provider consulted neurology and decision to not use TNK due to NIH 0. CT negative. CTA head/neck negative. Patient admitted for further evaluation. Denies any recent illness, no drug use, no sick contacts. Allergies No Known Allergies Allergy (Unverified 01/11/22 15:35) - Past Medical/Surgical History Past Medical History: Patient denies medical history -: cholecystectomy -: lumbar laminectomy - Family History Father -: Heart disease - Social History Smoking Status: Never smoker Alcohol use: Yes Place of Residence: Home Review of Systems 10-point ROS is otherwise unremarkable Physical Examination - Physical Exam General: Alert, In no apparent distress, Oriented x3 HEENT: EOMI, Sclerae nonicteric Neck: No LAD Respiratory: Clear to auscultation bilaterally, Normal air movement Cardiovascular: No edema, Regular rate/rhythm Gastrointestinal: Soft and benign, Non-distended, No tenderness Musculoskeletal: No contractures Neurological: Normal speech, Normal affect, Abnormal sensation (diminished along lower face, hand, lower leg) - Studies Laboratory Data (last 24 hrs) 01/11/22 09:46: PT 10.5, INR 0.96, APTT 28.3 01/11/22 09:46: WBC 7.6, Hgb 18.4 H, Hct 53.3 H, Plt Count 196 01/11/22 09:46: Sodium 136, Potassium 4.3, BUN 14, Creatinine 0.85, Glucose 135 H Assessment and Plan - Advance Directives Does patient have a Living Will: No Does patient have a Durable POA for Healthcare: No Physician Review Additional Text: Problem List Left sided numbness, weakness obese NIH on presentation: 0, with subjective numbness on left lower face/arm/hand/leg TNK not given CT brain, CTA - negative patient denies any past medical history nonsmoker, does drink 2 beers/daily denies any other drug/medication use no recent illness, no sick contacts chest pain - radiated to left axilla troponins negative x 2, will check one more neurology consulted MRI ordered unclear etiology aspirin, plavix, folic acid, statin check phos, tsh, lipids Code: full Dispo: home, possibly tomorrow - after workup Time Spent Managing Pts Care (In Minutes): 70
--- NOTE | 2022-01-11 18:26 | RAD REPORT ---
EXAM DESCRIPTION: MRI - MRA Head Wo Cont - 01/11/2022 6:18 pm CLINICAL HISTORY: CVA, stroke-like symptoms COMPARISON: CT angio head same date TECHNIQUE: Axial and coronal 3D [id number] image acquisition was performed. 3D rotational images were generated with source and reconstruction images reviewed. Horizontal and vertical axis rotation al views generated using MIP protocol. FINDINGS: No aneurysm or vascular malformation identified. No named branch occlusion, flow restricti ng lesion or vasculitis. No dissection changes are seen. Relatively low signal on the supraclinoid po rtions of each internal carotid artery believed be artifact. Basilar artery and distal vertebral arteries are unremarkable. Both posterior communicating arteries are present. IMPRESSION: Unremarkable MR angio head examination
--- NOTE | 2022-01-11 18:28 | RAD REPORT ---
EXAM DESCRIPTION: MRI - MRA Neck W/Wo Cont - 01/11/2022 6:18 pm CLINICAL HISTORY: CVA, left-sided numbness COMPARISON: CT angio neck same date TECHNIQUE: MR angiography of the cervical vasculature performed. Coronal imaging plane acquisition u tilized. A 20 MultiHance contrast volume was utilized. Coronal reformatted images were generated and reviewed. Vertical axis 3D rotational projections obtained using maximum intensity projection protoco l. FINDINGS: Aortic arch is 3 vessel configuration with no origins stenosis. No stenosis at either vert ebral artery origin. Left vertebral artery is dominant. No dissection, stenosis or ertapenem basilar abnormality. Bilateral common carotid and internal carotid arteries show no stenosis, dissection or suspicious fin ding. IMPRESSION: Unremarkable MRA neck examination.
--- NOTE | 2022-01-11 18:29 | RAD REPORT ---
EXAM DESCRIPTION: MRI - Brain W/Wo Cont - 01/11/2022 6:18 pm CLINICAL HISTORY: R/O CVA, LEFT SIDE WEAKNES COMPARISON: No comparisons TECHNIQUE: Sagittal and axial T1-weighted images were obtained. Axial PD/heavily T2-weighted and T2- FLAIR images were obtained along with axial DWI/ADC mapping sequences. Coronal heavily T2 weighted s equence obtained. Axial and coronal post-contrast T1-weighted images were also obtained. A 20 ml Mul tihance contrast following utilized. FINDINGS: No intracranial hemorrhage, mass or acute infarction. There is no edema or shift of midli ne structures. No extra-axial fluid collections. Farr-matter/white matter junction is preserved. Sig nal voids are seen as a normal finding in the major intracranial vessels. Ventricles are normal. No v olume loss is present. No signal abnormality in the cerebral or cerebellar hemispheres. Post-contrast images show normal enhancement. No dural thickening. Mastoid air cells and paranasal sinuses are clear. No globe or orbital content abnormality. No sella or supra sella abnormality. IMPRESSION: Negative contrast enhanced MRI of the Brain.
[2022-01-11] MEDS ORDERED: ATORVASTATIN 40 MG TAB PO SCH (21:00)
[2022-01-11 21:26] VITALS: BMI 38.2
[2022-01-11] MEDS ORDERED: MORPHINE 2 MG/ML SYR IV PRN (22:13)
[2022-01-12] MEDS: NA CHLORIDE 0.9% 1,000 ML IV SCH ×2 (02:00→06:11)
[2022-01-12 04:00] LABS: Absolute Lymphocytes (CBC) 2.4 K/uL (0.7-4.9); Hematocrit 49.4 % (39.6-49.0); MCV 85.5 fL (80-100); MPV 8.5 fL (7.6-11.3); RBC Red Blood Cell Count 5.78 M/uL (4.33-5.43)
[2022-01-12 04:23] LABS: Albumin 3.2 g/dL (3.4-5.0); Bilirubin Total 0.5 mg/dL (0.2-1.0); Magnesium 2.3 mg/dL (1.8-2.4); Phosphorus 2.7 mg/dL (2.5-4.9); Protein, Total 6.8 g/dL (6.4-8.2); Thyroid Stimulating Hormone 2.8 uIU/mL (0.360-3.740)
--- NOTE | 2022-01-12 07:31 | EKG ---
Test Date: 2022-01-11 Test Time: 22:26:23 Plastic Surgery Assistant: ZORAIDA MEASUREMENT RESULTS: Intervals: Rate: 73 AK: 166 QRSD: 80 QT: 380 QTc: 418 Rincon: P: 36 AK: 166 QRS: -18 T: 21 INTERPRETIVE STATEMENTS: Normal sinus rhythm Normal ECG No previous ECG available for comparison Electronically Signed On 01-12-22 07:30:45 CDT by Michele Salazar
[2022-01-12 08:45] VITALS: O2SAT 98
[2022-01-12] MEDS ORDERED: ASPIRIN EC 81 MG TAB PO SCH (09:00)
[2022-01-12] MEDS ORDERED: FOLIC ACID 1 MG TABLET PO SCH (09:00)
[2022-01-12] MEDS ORDERED: CLOPIDOGREL 75 MG TABLET PO SCH (09:00)
--- NOTE | 2022-01-12 10:34 | EKG ---
Test Date: 2022-01-11 Test Time: 09:13:57 Commercial Airplane Pilot: MB MEASUREMENT RESULTS: Intervals: Rate: 89 ME: 160 QRSD: 74 QT: 336 QTc: 408 Buckner: P: 56 ME: 160 QRS: 13 T: 62 INTERPRETIVE STATEMENTS: Normal sinus rhythm Normal ECG No previous ECG available for comparison Electronically Signed On 01-12-22 10:31:29 CDT by Michele Salazar
[2022-01-12 14:15] VITALS: BP 153/83; TEMP 98.1
--- NOTE | 2022-01-12 23:23 | P.DS ---
Admission Date: 01/11/22 Discharge Date: 01/12/22 Disposition: ROUTINE DISCHARGE Discharge Condition: GOOD Reason for Admission: L sided paresthesias Consultations: Neuro - Elmo Brief History of Present Illness: 41yo M, no PMH Presented to ED this morning after episode of chest discomfort associated with left lower face/arm/leg numbness. NIH: 0. Patient denies any prior cardiac history, no seizure/strokes. He was working on a tablet when this began. In the ED, noted to have some decreased sensation of lower face / hand/leg on left side. ER provider consulted neurology and decision to not use TNK due to NIH 0. CT negative. CTA head/neck negative. Patient admitted for further evaluation. Denies any recent illness, no drug use, no sick contacts. Hospital Course: Problem List Left sided paresthesia / numbness, suspected TIA obesity Patient's left sided numbness/tingling was evaluated by CT, CTA, MRI, MRA of head/neck, which were all normal. He was empirically treated with aspirin, plavix, statin, and folic acid. He had improvement of his symptoms. Neurology was consulted and patient was deemed stable for discharge home. Suspect TIA. Patient reported chest pressure radiating to left shoulder as well. EKG, troponins, and cardiac monitoring were all negative. Findings were reviewed with Cardiology who recommended outpatient echocardiogram. Patient was deemed stable for discharge home, to continue: aspirin, plavix, atorvastatin, folic acid Follow up with Neurology in the next few weeks, if symptoms persistent, will need further workup, consider NCS, EMG Follow up with Cardiology for outpatient echocardiogram Vital Signs/Physical Exam: Temp Pulse Resp BP Pulse Ox 98.1 F 75 16 153/83 H 99 01/12/22 12:00 01/12/22 12:00 01/12/22 12:00 01/12/22 12:01/12/22 12:00 General: Alert, In no apparent distress, Oriented x3 HEENT: PERRLA, EOMI, Sclerae nonicteric Respiratory: Clear to auscultation bilaterally, Normal air movement Cardiovascular: No edema, Regular rate/rhythm Gastrointestinal: Soft and benign, Non-distended, No tenderness Musculoskeletal: No contractures, No tenderness Integumentary: No significant lesion Neurological: Normal speech, Normal strength at 5/5 x4 extr, Cranial nerves 3-12 intact, Normal affect, Abnormal sensation (mildly diminished sensation to light touch just above ankle) Laboratory Data at Discharge: WBC 9.0 K/uL (4.3-10.9) D 01/12/22 03:42 Hgb 16.9 g/dL (13.6-17.9) 01/12/22 03:42 Hct 49.4 % (39.6-49.0) H 01/12/22 03:42 Plt Count 179 K/uL (152-406) 01/12/22 03:42 PT 10.5 SECONDS (9.5-12.5) 01/11/22 09:46 INR 0.96 01/11/22 09:46 APTT 28.3 SECONDS (24.3-36.9) 01/11/22 09:46 Sodium 137 mmol/L (136-145) 01/12/22 03:42 Potassium 4.0 mmol/L (3.5-5.1) 01/12/22 03:42 BUN 17 mg/dL (7-18) 01/12/22 03:42 Creatinine 0.99 mg/dL (0.55-1.3) 01/12/22 03:42 Glucose 142 mg/dL (74-106) H 01/12/22 03:42 Phosphorus 2.7 mg/dL (2.5-4.9) 01/12/22 03:42 Magnesium 2.3 mg/dL (1.8-2.4) 01/12/22 03:42 Total Bilirubin 0.5 mg/dL (0.2-1.0) 01/12/22 03:42 AST 29 U/L (15-37) 01/12/22 03:42 ALT 65 U/L (12-78) 01/12/22 03:42 Alkaline Phosphatase 95 U/L (45-117) 01/12/22 03:42 Triglycerides 151 mg/dL (<150) H 01/12/22 03:42 Cholesterol 177 mg/dL (<200) 01/12/22 03:42 HDL Cholesterol 36 mg/dL (40-60) L 01/12/22 03:42 Cholesterol/HDL Ratio 4.92 01/12/22 03:42 Home Medications: Aspirin [Aspirin EC 81 MG] 81 mg PO DAILY 30 Days #30 tab 01/12/22 Atorvastatin Calcium [Lipitor] 40 mg PO BEDTIME 30 Days #30 tab 01/12/22 Clopidogrel Bisulfate [Plavix*] 75 mg PO DAILY 30 Days #30 tab 01/12/22 Folic Acid 1 mg PO DAILY 30 Days #30 tab 01/12/22 New Medications: Aspirin [Aspirin EC 81 MG] 81 mg PO DAILY 30 Days #30 tab Folic Acid 1 mg PO DAILY 30 Days #30 tab Atorvastatin Calcium [Lipitor] 40 mg PO BEDTIME 30 Days #30 tab Clopidogrel Bisulfate [Plavix*] 75 mg PO DAILY 30 Days #30 tab Physician Discharge Instructions: Patient's left sided numbness/tingling was evaluated by CT, CTA, MRI, MRA of head/neck, which were all normal. He was empirically treated with aspirin, plavix, statin, and folic acid. He had improvement of his symptoms. Neurology was consulted and patient was deemed stable for discharge home. Suspect TIA. Patient reported chest pressure radiating to left shoulder as well. EKG, troponins, and cardiac monitoring were all negative. Findings were reviewed with Cardiology who recommended outpatient echocardiogram. Patient was deemed stable for discharge home, to continue: aspirin, plavix, atorvastatin, folic acid Follow up with Neurology in the next few weeks, if symptoms persistent, will need further workup, consider NCS, EMG Follow up with Cardiology for outpatient echocardiogram Followup: [facility] [Provider Group] (call to schedule an appointment ) Cuba Borrego MD [ASSOCIATE-ACTIVE - CAN ADMIT] - (neurologist- call to schedule an appointment ) Time spent managing pt's care (in minutes): 45
== END 2022-01-12 14:08 | disposition home or self-care (01) | DRG 69 ==
LOC: ER 09:05 → ERHOLD 15:17 → 2ND 20:41 → OBSVTOIN 21:57
PROVIDERS: ADMIT Hospitalist; ATTEND Hospitalist
DX: G45.9 Transient cerebral ischemic attack, unspecified (principal); E66.9 Obesity, unspecified; Z68.36 Body mass index [BMI] 36.0-36.9, adult; Z79.82 Long term (current) use of aspirin; Z20.822 Contact with and (suspected) exposure to COVID-19
CPT/HCPCS: 36415; 70450; 70496; 70498; 70544; 70549; 70553; 71045; 80048; 80053; 80061; 82550; 82947; 83735; 84100; 84443; 84484; 85025; 85610; 85730; 87811; 93005; 94760; 96365; 96375; 97161; 99285; A9577; G0378; J2270; J2405; J7030; Q9967